=== PATIENT | female | born 1965 | race Caucasian/White ===

== ENCOUNTER 2018-06-27 19:54 | Emergency (ER) | payer SELFPAY ==
[~2018-06-27] VITALS: Ht 165.1 cm; Wt 75.0 kg
[2018-06-27 20:18] VITALS: Ht 165.1 cm; Wt 75.0 kg
[2018-06-27] MEDS ORDERED: SOD CHLORIDE 0.9% 500 ML IV STA (22:33)
[2018-06-28] MEDS ORDERED: TRAM50TA2 PO (00:52)
[2018-06-28] MEDS ORDERED: METR500T PO (00:52)
[2018-06-28] MEDS ORDERED: AMOX1TAB10 PO (00:52)
--- NOTE | 2018-06-28 00:55 | ERD ---
ER Documentation Chief Complaint Chief Complaint BLOOD IN STOOL/ VOMIT, DIARRHEA X'S 1 DAY HPI 52-year-old female complains of blood in her stool and vomiting and diarrhea for 24 hours. She had bloody diarrhea 3-4 episodes. One episode of vomiting which is nonbloody. She also was a lower abdominal pain. Denies any fevers or chi lls. Denies any other current complaints. Pain is mild to moderate intensity with no exacerbating or alleviating factors. Denies any other current issues. ROS All systems reviewed and are negative except as per history of present illness. Medications Home Meds Active Scripts Tramadol HCl (Tramadol HCl) 50 Mg Tablet, 50 MG PO Q4 PRN for PAIN, #20 TAB Prov:KATHLEEN MCELROY 06/28/18 Metronidazole* (Flagyl*) 500 Mg Tablet, 500 MG PO TID for 7 Days, TAB Prov:KATHLEEN MCELROY 06/28/18 Amoxicillin/Potassium Clav (Amox-Clav 875-125 mg Tablet) 875-125 mg Tab, 1 TAB PO BID for 7 Days, #14 TAB Prov:SUMAJONATHANKATHLEEN Frank 06/28/18 Reported Medications [None] No Conflict Check 07/07/09 Allergies Allergies: Coded Allergies: No Known Allergy (Verified Allergy, Mild, 07/07/09) PMhx/Soc History of Surgery: Yes (C- SECTION) Hx Neurological Disorder: No Hx Respiratory Disorders: No Hx Cardiac Disorders: No Hx Miscellaneous Medical Probl: No Hx Alcohol Use: No Hx Substance Use: No Hx Tobacco Use: No Smoking Status: Never smoker Physical Exam Vitals Vital Signs Date Temp Pulse Resp B/P (MAP) Pulse Ox O2 O2 Flow FiO2 Time Delivery Rate 06/27/18 78 16 125/77 100 Room Air 23:31 (93) 06/27/18 97.0 83 18 150/68 100 20:18 (95) Physical Exam Const: No acute distress Head: Atraumatic Eyes: Normal Conjunctiva ENT: Normal External Ears, Nose and Mouth. Neck: Full range of motion. No meningismus. Resp: Clear to auscultation bilaterally Cardio: Regular rate and rhythm, no murmurs Abd: Soft, non tender, non distended. Normal bowel sounds Skin: No petechiae or rashes Back: No midline or flank tenderness Ext: No cyanosis, or edema Neur: Awake and alert Psych: Normal Mood and Affect Result Diagram: 06/27/18221806/27/182218 Results 24 hrs Laboratory Tests Test 06/27/18 22:19 06/27/18 23:30 White Blood Count 11.8 10^3/ul Red Blood Count 4.63 10^6/ul Hemoglobin 14.4 g/dl Hematocrit 44.4 % Mean Corpuscular Volume 95.9 fl Mean Corpuscular Hemoglobin 31.1 pg Mean Corpuscular Hemoglobin Concent 32.4 g/dl Red Cell Distribution Width 17.2 % Platelet Count 250 10^3/UL Mean Platelet Volume 9.9 fl Immature Granulocytes % 0.500 % Neutrophils % 56.7 % Lymphocytes % 35.4 % Monocytes % 6.3 % Eosinophils % 0.8 % Basophils % 0.3 % Nucleated Red Blood Cells % 0.0 /100WBC Immature Granulocytes # 0.060 10^3/ul Neutrophils # 6.7 10^3/ul Lymphocytes # 4.2 10^3/ul Monocytes # 0.7 10^3/ul Eosinophils # 0.1 10^3/ul Basophils # 0.0 10^3/ul Nucleated Red Blood Cells # 0.0 10^3/ul Prothrombin Time 13.7 Sec Prothrombin Time Ratio 1.1 INR International Normalized Ratio 1.04 Activated Partial Thromboplast Time 27.4 Sec Sodium Level 141 mmol/L Potassium Level 3.7 mmol/L Chloride Level 101 mmol/L Carbon Dioxide Level 30 mmol/L Anion Gap 10 Blood Urea Nitrogen 13 mg/dl Creatinine 0.71 mg/dl Est Glomerular Filtrat Rate mL/min > 60 mL/min Glucose Level 108 mg/dl Calcium Level 10.0 mg/dl Total Bilirubin 0.5 mg/dl Direct Bilirubin 0.00 mg/dl Indirect Bilirubin 0.5 mg/dl Aspartate Amino Transf (AST/SGOT) 37 IU/L Alanine Aminotransferase (ALT/SGPT) 45 IU/L Alkaline Phosphatase 111 IU/L Total Protein 8.6 g/dl Albumin 4.8 g/dl Globulin 3.80 g/dl Albumin/Globulin Ratio 1.26 Lipase 112 U/L Urine Color STRAW Urine Clarity CLEAR Urine pH 6.0 Urine Specific Camp 1.003 Urine Ketones NEGATIVE mg/dL Urine Nitrite NEGATIVE mg/dL Urine Bilirubin NEGATIVE mg/dL Urine Urobilinogen NEGATIVE mg/dL Urine Leukocyte Esterase NEGATIVE Estefany/ul Urine Hemoglobin NEGATIVE mg/dL Urine Glucose NEGATIVE mg/dL Urine Total Protein NEGATIVE mg/dl Current Medications Medications Dose Sig/Rosalino Start Time Status Last (Trade) Ordered Route PRN Stop Time Admin Dose Reason Admin Sodium 500 ml @ Q1H STAT 06/27/18 DC 06/27/18 Chloride 500 mls/hr IV 22:33 22:40 06/27/18 23:32 Procedures/MDM Meds department course: Patient seen and evaluated by triage nurse. Placed in bed from the evaluation. Intravenous access established. Had blood work drawn. Given a fluid bolus. Given pain medication. Serial examinations were stable here in the emergency department. Pain resolved. Medical decision makin-year-old female with nonspecific colitis. At this point she is clinically stable for outpatient management as her pain is resolved and she is tolerating p.o. She will be discharged home with short course of Augmentin and Flagyl as is likely bacterial in nature. She is been told to return in 8 hours for serial abdominal exams to which she agrees and otherwise follow-up with her PCP tomorrow. She is to return sooner for any return of or worsening of symptoms. Departure Diagnosis: Primary Impression: Colitis Condition: Stable Patient Instructions: Gastroenteritis, Bacterial (Child) (Adult) KATHLEEN MCELROY Jun 28, 2018 00:55
[2018-06-28 01:02] VITALS: BP 110/65; PULSE 80; RESP 16
== END 2018-06-28 01:03 | disposition home or self-care (01) ==
LOC: E/R 19:54
DX: K52.9 Noninfective gastroenteritis and colitis, unspecified (principal); R10.30 Lower abdominal pain, unspecified
CPT/HCPCS: 36415; 74176; 80053; 81003; 83690; 85025; 85610; 85730; 93005; 99285; J7040